=== PATIENT | male | born 1995 | race Caucasian/White ===

== ENCOUNTER 2023-11-12 22:04 | Emergency (ER) | payer SELFPAY ==
--- NOTE | ~2023-11-12 | CT_ITS ---
CT scan of the Neck Technique: 2.5 mm axial scans were obtained through the neck after intravenous administration of 75 c c Omnipaque 350. Coronal and sagittal reconstructions of the neck were obtained. Dose reduction techn ique was used on this scan by utilizing automated exposure control and iterative reconstruction techn ique. The dose-length product (DLP) was 492.13 mGy-cm. Clinical History: Globus sensation Findings: There is no evidence of any significant cervical lymphadenopathy. Several small, nonenlarged jugulo- digastric and posterior cervical lymph nodes are noted bilaterally. Parapharyngeal spaces appear norm al bilaterally. The parotid and submandibular glands appear normal. The pharyngeal mucosal spaces appear normal. No soft tissue masses are seen in the neck. The thyroid gland appears normal. Images of the lung apices reveal no abnormalities. Impression: No significant abnormalities noted. Reviewed, dictated and finalized at [facility]. Impression: No significant abnormalities noted.
[2023-11-12 22:06] VITALS: BP 156/97; PULSE 126; RESP 18; TEMP 36.7; O2SAT 100
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
[2023-11-12 23:29] LABS: Basophils Absolute Auto 0.1 K/mm3 (0.0-0.1); Basophils Percent Auto 0.7 % (0.2-1.2); Eosinophils Absolute Auto 0.1 K/mm3 (0-0.3); Eosinophils Percent Auto 1.2 % (0-4.4); Hematocrit 48.6 % (42.0-52.0); Hemoglobin 16.1 g/dL (14.0-18.0); Immature Granulocyte Absolute 0.02 K/mm3 (0.00-0.031); Immature Granulocyte Percent A 0.3 % (0-0.5); Lymphocytes Absolute Auto 1.81 K/mm3 (0.9-3.2); Lymphocytes Percent Auto 24.9 % (18.3-44.2); Mean Corpuscular HGB Conc 33.1 g/dl (32-36); Mean Corpuscular Hemoglobin 29.1 pg (26-34); Mean Corpuscular Volume 87.9 fl (80-100); Mean Platelet Volume 9.6 fl (7.4-10.4); Monocytes Absolute Auto 0.4 K/mm3 (0.1-0.6); Monocytes Percent Auto 5.6 % (2.6-8.5); Neutrophils Absolute Auto 4.9 K/mm3 (1.3-6.7); Neutrophils Percent Auto 67.3 % (45.5-73.1); Platelet Count Result 264 k/mm3 (150-375); Red Blood Count 5.53 M/mm3 (4.6-6.20); Red Cell Distribution Width 12.4 % (11.5-14.5); White Blood Count 7.3 K/mm3 (4.5-10.0)
[2023-11-12 23:38] LABS: Anion Gap 10 mmol/L (4-12); Blood Urea Nitrogen 12 mg/dL (9-20); Calcium 10.9 mg/dL (8.4-10.2); Carbon Dioxide 26 mmol/L (22-30); Chloride 103 mmol/L (98-107); Estimated CRCL calculation 133 ml/min; Estimated Glomerular Filt Rate > 60; Glucose 102 mg/dL (65-110); Potassium 3.4 mmol/L (3.4-5.0); Sodium 139 mmol/L (137-145)
== END 2023-11-13 01:43 | disposition home or self-care (01) ==
PROVIDERS: Emergency Provider Emergency Medicine
DX: F45.8 Other somatoform disorders (principal); F41.9 Anxiety disorder, unspecified
CPT/HCPCS: 36415; 70491; 80048; 85025; 99284; Q9967

== ENCOUNTER 2024-01-25 21:24 | Emergency (ER) | payer SELFPAY ==
[2024-01-25 21:25] VITALS: BP 151/88; PULSE 96; RESP 16; TEMP 36.4; O2SAT 100
[2024-01-25 22:40] VITALS: RESP 18; O2SAT 100
--- NOTE | 2024-01-26 00:37 | PC.NURSE ---
sumi antony at bedside for assessment .
--- NOTE | 2024-01-26 00:56 | PC.NURSE ---
pt requesting to speak to erp arpan again/ arpan notified at this time.
--- NOTE | 2024-01-26 01:03 | ED.GENADULT ---
HPI - General Adult General Chief complaint: Unspecified Stated complaint: choking sensation sore throat Time Seen by Provider: 01/26/24 00:12 History of Present Illness HPI narrative: 28-year-old male presents to the emergency department for intermittent globus sensation for multiple months. Patient states it feels like he has a lump beneath his Dima's apple and feels like someone is choking him. Patient states he has intermittent hoarseness in his voice. He denies a sore throat, odynophagia or dysphagia, difficulty breathing, fever. He was evaluated in our emergency department in November of 2023 for the same symptoms. He had a negative CT neck at that time and negative lab work. He was referred to ENT. Today, patient states he is not follow-up with ENT because he was unaware that he was referred to ENT. He does endorse a history of anxiety and states when he begins to feel the sensation in his throat, he becomes anxious shortly after. Related Data Allergies Allergy/AdvReac Type Severity Reaction Status Date / Time No Known Allergies Allergy Verified 01/25/24 21:29 Review of Systems Review of Systems: All systems reviewed & are unremarkable except as noted in HPI and below PMFSH Family History Family History Grandparent Hypertension Mother Family history of malignant neoplasm of breast in first degree relative Family history of malignant neoplasm of breast Other Depression Social History Social History Smoking status: Never smoker Second hand tobacco smoke exposure: No Alcohol intake: never Exam Narrative: GENERAL: Well-appearing, well-nourished, and in no acute distress. HEAD: Normocephalic, atraumatic. EYES: PERRLA and EOMI. ENT: Nares clear, no rhinorrhea or epistaxis. Mucous membranes moist. Posterior pharynx without erythema or edema. No tonsillar hypertrophy. No uvular deviation. No airway compromise. No foreign bodies or edema. Patient is tolerating secretions. No trismus. NECK: Supple. No adenopathy or lumps CHEST: Clear to auscultation. No respiratory distress. HEART: Regular rate and rhythm. No murmur heard. Normal peripheral pulses. EXTREMITIES: Normal range of motion. No edema. SKIN: Warm, dry, no rash. NEURO: No focal deficits. Alert and oriented x3 Course Vital Signs Vital signs: Vital Signs Temperature 97.6 F 01/25/24 21:25 Pulse Rate 96 01/25/24 21:25 Respiratory Rate 16 01/25/24 21:25 Blood Pressure 151/88 H 01/25/24 21:25 Pulse Oximetry 100 01/25/24 21:25 Oxygen Delivery Room Air 01/25/24 21:25 Temperature 97.6 F 01/25/24 21:25 Pulse Rate 96 01/25/24 21:25 Respiratory Rate 18 01/25/24 22:40 Blood Pressure 151/88 H 01/25/24 21:25 Pulse Oximetry 100 01/25/24 22:40 Oxygen Delivery Room Air 01/25/24 21:25 Medical Decision Making MDM Narrative Medical decision making narrative: 28-year-old male presents emergency department for globus sensation for several months intermittently. States when he feels the globus sensation he becomes anxious shortly after. Denies dysphagia or odynophagia, no difficulty breathing. There is no airway compromise. Exam is significant for the above. He is tolerating his secretions. He was seen in our emergency department and November 2023 for the same presentation and had a negative CT and lab work at that time. He was referred to ENT but has not followed up with ENT. He presents today for persistent symptoms. I did offer to repeat lab work and CT scan as well as strep and mono testing but patient declined. States will follow-up with ENT now that he is aware of the referral. Strict ED return precautions discussed. He is agreeable to plan verbalized understanding. Discharged in stable condition. Vital Signs Vital Signs: Vital Signs Temperature 97.6 F 01/25/24 21:25 Pul
[2024-01-26 01:10] VITALS: BP 137/69; PULSE 73; RESP 14; O2SAT 98
--- NOTE | 2024-01-26 01:10 | PC.NURSE ---
after speaking to provider, pt requests to cancel work up and follow up out pt.
== END 2024-01-26 01:11 | disposition home or self-care (01) ==
PROVIDERS: Emergency Provider Physician Assistant
DX: R09.89 Other specified symptoms and signs involving the circulatory and respiratory systems (principal)
CPT/HCPCS: 99281